=== PATIENT | female | born 1995 | race Caucasian/White ===

== ENCOUNTER → 2020-05-26 14:27 | Outpatient (BNVA) | payer MEDICAID, SELFPAY | PROVIDERS: PCP Internal Medicine; Referring Provider Internal Medicine; Visit Provider Student in an Organized Health Care Education/Training Program | DX: M25.50 Pain in unspecified joint (principal); M79.642 Pain in left hand; M79.641 Pain in right hand | CPT/HCPCS: 99202 ==

== ENCOUNTER 2020-05-28 10:28 | Outpatient (REF) | payer MEDICAID, SELFPAY ==
--- NOTE | 2020-05-28 10:54 | XR_ITS ---
EXAMINATION: BILATERAL HAND/WRIST. CLINICAL INFORMATION: Pain. COMPARISON: None TECHNIQUE: 4 views each hand. FINDINGS: RIGHT HAND: There is no visible acute fracture, dislocation or subluxation. The joint spaces are maintained. The soft tissues are normal. LEFT HAND: There is no visible fracture, dislocation or subluxation. The joint spaces are maintained. The soft tissues are normal. XR/XR hand wrist LT IMPRESSION: Unremarkable bilateral hand exam.
--- NOTE | 2020-05-28 10:54 | XR_ITS ---
EXAMINATION: BILATERAL HAND/WRIST. CLINICAL INFORMATION: Pain. COMPARISON: None TECHNIQUE: 4 views each hand. FINDINGS: RIGHT HAND: There is no visible acute fracture, dislocation or subluxation. The joint spaces are maintained. The soft tissues are normal. LEFT HAND: There is no visible fracture, dislocation or subluxation. The joint spaces are maintained. The soft tissues are normal. XR/XR hand wrist RT IMPRESSION: Unremarkable bilateral hand exam.
[2020-05-28 11:01] LABS: MANUAL DIFF FLAG NO
[2020-05-28 11:06] LABS: Basophils Absolute Auto 0.1 X10*3/uL (0.0-0.2); Basophils Percent Auto 0.6 % (0-2); Eosinophils Absolute Auto 0.2 X10*3/uL (0.0-0.4); Eosinophils Percent Auto 1.7 % (0-4); Hematocrit 41.5 % (37-47); Hemoglobin 14.4 g/dl (12.0-16.0); Imm Gran Abs Auto 0.03 X10*3/uL (0.00-0.03); Imm Gran Pct Auto 0.3 % (0.0-0.4); Lymphocytes Absolute Auto 3.6 X10*3/uL (1.2-4.9); Lymphocytes Percent Auto 32.4 % (20-40); Mean Corpuscular HGB Conc 34.7 g/dl (31.0-35.0); Mean Corpuscular Hemoglobin 29.1 pg (27.0-33.0); Mean Corpuscular Volume 83.8 fL (80-98); Mean Platelet Volume 8.8 fL (9.4-12.3); Monocytes Absolute Auto 0.7 X10*3/uL (0.1-1.2); Monocytes Percent Auto 6.5 % (2-11); Neutrophils Absolute Auto 6.5 X10*3/uL (2.0-8.3); Neutrophils Percent Auto 58.5 % (45-73); Platelet Count 479 X10*3/uL (160-400); Red Blood Count 4.95 X10*6/uL (4.20-5.50); Red Cell Distribution Width 12.1 % (11.0-16.0); White Blood Count 11.1 X10*3/uL (4.8-10.8)
[2020-05-28 11:41] LABS: Alanine Aminotransferase 49 U/L (0-31); Albumin Level 4.1 g/dL (3.5-5.0); Alkaline Phosphatase 79 U/L (39-117); Anion Gap 12 (12-20); Aspartate Amino Transferase 38 U/L (5-31); Bilirubin Total 0.4 mg/dL (0.0-1.0); Blood Urea Nitrogen 9 mg/dL (9-16); C Reactive Protein 1.23 mg/dL (< or = 0.50); Carbon Dioxide 27 mmol/L (22-29); Chloride 103 mmol/L (96-108); Estimated Glomerular Filt Rate > 60; Glucose Random 194 mg/dL (60-115); Rheumatoid Factor < 15.0 IU/mL (<15.0); Sodium 138 mmol/L (135-145); Total Protein 7.3 g/dL (6.5-8.0)
[2020-05-28 11:50] LABS: Erythrocyte Sedimentation Rate 39 MM/HR (0-20)
[2020-05-29 13:12] LABS: Antibody to SS-A Antigen <1.0 NEG AI (<1.0 NEG); Antibody to SS-B Antigen <1.0 NEG AI (<1.0 NEG)
[2020-05-30 14:52] LABS: Anti Nuclear Antibody Screen NEGATIVE (NEGATIVE)
[2020-06-01 00:17] LABS: Cyclic Citrullinated Peptide <16 UNITS
== END 2020-05-28 10:29 | disposition home or self-care (01) ==
LOC: HO.LAB 10:28
PROVIDERS: PCP Internal Medicine; Visit Provider Student in an Organized Health Care Education/Training Program
DX: M25.50 Pain in unspecified joint (principal)
CPT/HCPCS: 36415; 73110; 73130; 80053; 85025; 85652; 86038; 86039; 86140; 86200; 86235; 86431

== ENCOUNTER 2020-06-14 08:35 | Emergency (ER) | payer MEDICAID, SELFPAY ==
[2020-06-14 09:03] VITALS: PULSE 75; RESP 20; TEMP 37; O2SAT 100; BMI 37.2
--- NOTE | 2020-06-14 09:03 | ED.HA ---
HPI - Headache General Chief Complaint: Headache Stated Complaint: headache,sob Time Seen by Provider: 06/14/20 09:02 Source: patient Mode of arrival: ambulatory Limitations: no limitations History of Present Illness HPI Narrative: Headache started at 5am, frontal. Patient suffers from headaches frequently. In addition had right sided chest pain, no fever or cough. MD elicited complaint: headache Onset (ago): hour(s) Onset description: while at rest Location: frontal Severity: mild Associated symptoms: nausea Related Data Home Medications Medication Instructions Recorded Confirmed insulin glargine 100 unit/mL (3 10 unit SUBCUT QPM 05/26/20 mL) subcutaneous pen medroxyprogesterone 150 mg/mL 150 mg IM [id number] 05/26/20 intramuscular suspension metformin 850 mg tablet 850 mg PO DAILY 05/26/20 Previous Rx's Medication Instructions Recorded naproxen [Naprosyn] 500 mg PO BID #20 tab 06/14/20 Allergies Allergy/AdvReac Type Severity Reaction Status Date / Time No Known Allergies Allergy Verified 05/26/20 14:38 [No Known Allergies*] Review of Systems Constitutional: Constitutional: Reports no additional constitutional complaints Eyes: Eyes: Reports no additional eye complaints ENT: Denies dizziness Cardiovascular: Cardiovascular: Reports no additional cardiovascular complaints Respiratory: Respiratory: Reports as per HPI Gastrointestinal: Gastrointestinal: Reports no additional gastrointestinal complaints Genitourinary: Genitourinary: Reports no additional female genitourinary complaints Musculoskeletal: Musculoskeletal: Reports no additional musculoskeletal complaints Integumentary/Breasts: Skin/Breast: Denies rash Neurologic: Reports system reviewed and no additional complaints, except as documented, Denies dizziness and Denies Sensory deficit (Neuro) Psychiatric: Psychiatric: Denies anxiety [facility] Past Medical History Medical History Depression Diabetes Liver disease Obesity Polycystic disease, ovaries Surgical History No pertinent past surgical history Family History Family History Father Diabetes Alzheimer disease Arthritis Mother Diabetes Social History Social History Alcohol intake: never Smoking Status: Never smoker Smoked in Last 30 Days: No Use of substances other than those prescribed or required for medical reasons: No Advance Directives: Yes Advance Directives Information Provided: Yes Advance Directives on File: No Physical Exam Vital Signs: Vital Signs: Last Vital Signs Temp 98.6 F 06/14/20 09:03 Pulse 72 06/14/20 11:15 Resp 20 06/14/20 09:03 BP 142/77 H 06/14/20 11:15 Pulse Ox 100 06/14/20 09:03 Body Mass Index 37.2 Const: General: healthy appearing Nutritional Appearance: obese Orientation/consciousness: oriented to person and patient oriented x3 Limitations: no limitations HENMT: Head: Yes normal to inspection Ears: external ears normal General nose exam: Normal external nose present Mouth: Normal oral and palatal mucosa present and oropharynx normal Throat: Yes posterior oropharynx normal Eyes: General: appearance normal, both eyes and all related structures Neck: Other: supple Neck: Yes normal visual inspection Chest: Chest palpation & inspection: normal inspection of the chest Resp: Auscultation: clear to auscultation bilaterally Cardio: Jugular venous distension: no JVD Rate: regular rate Rhythm: regular rhythm Heart sounds: S1 normal heart sound present and S2 normal heart sound present GI: Inspection: Yes normal to inspection Palpation (GI): Soft to palpation, nontender and No hepatosplenomegaly present Auscultation: normal bowel sounds : General: Yes no CVA tenderness Back/Spine/Pelvis: Back: no CVA tenderness Skin: General skin exam: no rashes or lesions noted Neuro: General: oriented to person and patient oriented x3 Cranial nerves: Yes CN's II-XII intact bilaterally Motor exam (neuro): 5/5 motor strength present throughout Sensory Exam: No Sensory deficit (Neuro) Extrem: General: Yes normal to inspection Psych: Appearance: grossly normal Course Course Course Narrative: resting comfortably Reevaluation(s) Reevaluation #1: Chest xray is normal MDM - Headache MDM Narrative Medical decision making narrative: Although patient has DM, her chest pain sound non cardiac, she is young with normal EKG and troponin. Will dc home on NSAIDs for her headache Differential Diagnosis Differential diagnosis: Likely headache Lab Data Labs: Lab Results 06/14/20 Range/Units 09:21 Urine Test NEGATIVE (NEGATIVE) ECG Data Attestation: I personally reviewed and interpreted this ECG as follows: Interpretation: sinus rate 75, apcs, no st or twave changes Discharge Plan Discharge Clinical Impression: Atypical chest pain Headache Qualifiers: Headache type: other headache syndrome Qualified Code(s): G44.89 - Other headache syndrome Patient Disposition: Home, Self-Care Instructions: Chest Pain (ED), Acute Headache (ED) Prescriptions: New naproxen [Naprosyn] 500 mg tablet 500 mg PO BID Qty: 20 RF: 0 No Action metformin 850 mg tablet 850 mg PO DAILY RF: 0 Lantus Solostar U-100 Insulin 100 unit/mL (3 mL) insulin pen 10 unit subcut QPM RF: 0 medroxyprogesterone [Depo-Provera] 150 mg/mL suspension 150 mg IM [id number] RF: 0 Referrals: Debby King MD [Primary Care Provider] - 2 days
--- NOTE | 2020-06-14 09:06 | XR_ITS ---
EXAMINATION: XR CHEST CLINICAL INFORMATION: Chest pain COMPARISON: None TECHNIQUE: Frontal view of the chest was obtained. FINDINGS: No significant abnormality is noted involving the heart, lungs, mediastinum, bony thorax or soft tissues. XR/XR chest 1V IMPRESSION: Unremarkable examination.
--- NOTE | 2020-06-14 09:06 | ECG_ITS ---
Test Reason : CP Blood Pressure : / mmHG Vent. Rate : 074 BPM Atrial Rate : 074 BPM P-R Int : 132 ms QRS Dur : 104 ms QT Int : 370 ms P-R-T Axes : 019 053 012 degrees QTc Int : 410 ms Sinus rhythm with Premature supraventricular complexes Nonspecific ST abnormality When compared with ECG of [id number] Heart rate has decreased Premature atrial complexes are new T wave inversion no longer evident in Inferior leads T wave amplitude has increased in Lateral leads QT has shortened Referred By: Antonio Wall Electronically Signed By:PONCE LOPEZ MD
[2020-06-14] MEDS: Ketorolac Tromethamine 60 MG/2 ML VIAL IM (09:20)
--- NOTE | 2020-06-14 09:26 | PC.NURSE ---
Pt presents with a gradual onset of headache with associated exertional substernal chest pain. She is alert, rr even, speaks in full sentences, skin is pwdi, and she is in nad. Dr Wall in to see pt. Orders provided. Pt ambulated to without diffulty to produce urine spec. She was medicated per emar.
[2020-06-14 09:49] LABS: UPreg QC Valid YES; Urine Pregnancy NEGATIVE (NEGATIVE)
[2020-06-14 11:15] VITALS: BP 142/77; PULSE 72
--- NOTE | 2020-06-14 11:27 | PC.NURSE ---
Pt requesting a covid swab test per her employers request to return to work. Dr Wall made aware and placed order. Pt swabbed as ordered.
== END 2020-06-14 12:08 | disposition home or self-care (01) ==
PROVIDERS: Emergency Provider Emergency Medicine; PCP Internal Medicine
DX: G44.89 Other headache syndrome (principal); R05 Cough; R07.89 Other chest pain; Z20.828 Contact with and (suspected) exposure to other viral communicable diseases; Z79.899 Other long term (current) drug therapy
CPT/HCPCS: 71045; 81025; 93005; 96372; 99284; J1885; U0003

== ENCOUNTER → 2020-06-29 11:25 | Outpatient (BNVA) | payer MEDICAID, SELFPAY | PROVIDERS: PCP Internal Medicine; Referring Provider Internal Medicine; Visit Provider Student in an Organized Health Care Education/Training Program | DX: Z76.89 Persons encountering health services in other specified circumstances (principal) ==

== ENCOUNTER → 2020-07-14 09:53 | Outpatient (BNVA) | payer MEDICAID, SELFPAY | PROVIDERS: PCP Internal Medicine; Referring Provider Internal Medicine; Visit Provider Internal Medicine | DX: Z76.89 Persons encountering health services in other specified circumstances (principal) ==

== ENCOUNTER → 2020-07-20 08:44 | Outpatient (BNVA) | payer MEDICAID, SELFPAY | PROVIDERS: PCP Internal Medicine; Visit Provider Physician Assistant | DX: Z76.89 Persons encountering health services in other specified circumstances (principal) ==

== ENCOUNTER 2021-01-26 23:49 | Emergency (ER) | payer MEDICAID, SELFPAY ==
[2021-01-27 00:02] VITALS: BP 142/84; PULSE 86; RESP 20; TEMP 35.9; O2SAT 96; BMI 39.6
--- NOTE | 2021-01-27 00:24 | ECG_ITS ---
Test Reason : DIZZINESS Blood Pressure : / mmHG Vent. Rate : 074 BPM Atrial Rate : 074 BPM P-R Int : 138 ms QRS Dur : 098 ms QT Int : 360 ms P-R-T Axes : 061 066 023 degrees QTc Int : 399 ms Sinus rhythm with marked sinus arrhythmia Early repolarization Otherwise normal ECG When compared with ECG of 14-JUN-2020 09:25, Premature supraventricular complexes are no longer Present Referred By: Pratima Lo Electronically Signed By:BEVERLY VÁZQUEZ
--- NOTE | 2021-01-27 00:55 | ED.HA ---
HPI - Headache General Chief Complaint: Headache Stated Complaint: light headed weak, nausea aprox 4 days Time Seen by Provider: 01/27/21 00:24 Source: patient Mode of arrival: ambulatory History of Present Illness HPI Narrative: 25-year-old female with a past medical history of depression, hirsutism, liver disease, obesity, PCOS, transaminitis, diabetes, vitamin-D deficiency, presenting to the ED complaining of headache, nausea, and lightheadedness x3 days. Reports headache not maximal at onset. Reports associated photophobia. Denies fever, chills, visual change/loss, vomiting, diarrhea, CP/ SOB, dysuria/hematuria. LMP years ago, patient reports does not get menstrual cycle secondary to PCOS MD elicited complaint: headache Related Data Home Medications Medication Instructions Recorded Confirmed insulin glargine 100 unit/mL (3 10 unit SUBCUT QPM 05/26/20 07/14/20 mL) subcutaneous pen medroxyprogesterone 150 mg/mL 150 mg IM [id number] 05/26/20 07/14/20 intramuscular suspension ibuprofen 800 mg tablet 800 mg PO Q8H PRN 07/14/20 07/14/20 Previous Rx's Medication Instructions Recorded cefuroxime axetil 250 mg PO BID 7 Days #14 tab 01/27/21 Allergies Allergy/AdvReac Type Severity Reaction Status Date / Time No Known Allergies Allergy Verified 07/14/20 11:40 [No Known Allergies*] Review of Systems Review of Systems: Constitutional: No Fever, No Chills,No Fatigue, No Malaise ENT/Mouth: No Hearing loss, No Ear Pain, No sore throat, No Rhinorrhea Eyes: No Eye Pain, No Vision Changes Cardiovascular: No Chest Pain, No SOB Respiratory: No Cough, No Dyspnea Gastrointestinal: + Nausea, No Vomiting, No Diarrhea, No Abdominal pain Genitourinary: No Dysuria, No Urinary Frequency, No Hematuria,No Flank Pain Musculoskeletal: No joint pain, No Myalgias, No Joint Swelling Skin: No Skin Lesions, No rash Neuro: No Weakness, No Numbness, No Paresthesias, No Loss of Consciousness, No Dizziness, + lightheadedness, +Headache Yes all other systems are reviewed and are negative Neurologic: Denies Sensory deficit (Neuro) PMFSH Past Medical History Attestation statement: The following information was validated with the patient. Medical History (Updated 01/27/21 @ 02:28 by KAZ Campbell) Amenorrhea Depression Elevated liver enzymes Hirsutism Liver disease Obesity Polycystic disease, ovaries Transaminitis Type 2 diabetes mellitus Vitamin D deficiency Surgical History No pertinent past surgical history Family History Family History Father Diabetes Arthritis Mother Diabetes Alzheimer disease Social History Social History (Updated 07/20/20 @ 09:05 by Jessica Henry PA-C) Household Members: Family Alcohol intake: never Advance Directives: No Advance Directives Information Provided: No Patient : No Current occupational status: unemployed Physical Exam Vital Signs: Vital Signs: Last Vital Signs Temp 96.6 F L 01/27/21 00:02 Pulse 86 01/27/21 00:02 Resp 20 01/27/21 00:02 BP 142/84 H 01/27/21 00:02 Pulse Ox 96 01/27/21 00:02 Body Mass Index 39.6 Const: General: cooperative, healthy appearing, no acute distress, well developed, alert and awake Orientation/consciousness: patient oriented x3 Limitations: no limitations HENMT: Head: Yes normal to inspection Ears: hearing grossly normal bilaterally General nose exam: Normal external nose present Face and sinus: Yes normal facial exam Eyes: General: appearance normal, both eyes and all related structures Pupils: Equal, round and reactive pupils present EOM: EOMs intact bilaterally Neck: Neck: Yes normal visual inspection, Yes full ROM, Yes no lymphadenopathy and Yes no meningeal signs Resp: Effort & Inspection: normal respiratory effort Auscultation: no crackles and no wheezes Cardio: Rate: regular rate Heart sounds: S1 normal heart sound present and S2 normal heart sound present GI: Inspection: Yes normal to inspection Palpation (GI): Soft to palpation, nontender, no guarding and not rigid Skin: Rashes: no rashes Wounds: no wounds Neuro: General: patient oriented x3, tone normal, moves all extremities, no meningeal signs, no focal motor deficits and CN's II-XI intact bilaterally Cranial nerves: Yes Equal, round and reactive pupils present Gait exam (Neuro): Normal gait present Motor exam (neuro): 5/5 motor strength present throughout, Pronator motor function not present and no tremor noted Sensory Exam: No Sensory deficit (Neuro) Coordination: [id number] test normal Romberg Test: Negative Extrem: General: Yes normal to inspection Course Course Course Narrative: - no leukocytosis, AST/ ALT at patient's baseline, troponin negative - UA infected, urine negative >> patient given 1st dose of Ceftin in the ED -0230-- on re-evaluation patient reports symptomatic improvement in the ED, worrisome signs and symptoms and strict return precautions discussed, she verbalized understanding feel safe for discharge home MDM - Headache MDM Narrative Medical decision making narrative: 25-year-old female with a past medical history of depression, hirsutism, liver disease, obesity, PCOS, transaminitis, diabetes, vitamin-D deficiency, presenting to the ED complaining of headache, nausea, and lightheadedness x3 days. on exam VSS, NAD, well appearing, nontoxic. No focal neuro deficits. Concern for migraine headache vs metabolic abnormalities. Rule out . Symptoms atypical for ACS. Low concern for meningitis/encephalitis or CVT or ICH/SAH plan: EKG, labs, IVF, symptomatic treatment, reassess Medical Records Attestation: I reviewed the patient's medical records. Lab Data Attestation: I reviewed the patient's lab results. Result diagrams: 01/27/21 00:56 01/27/21 00:56 Labs: Lab Results 01/27/21 01/27/21 01/27/21 Range/Units 00:56 00:56 00:56 WBC 10.4 (4.8-10.8) X10*3/uL RBC 4.78 (4.20-5.50) X10*6/uL Hgb 13.9 (12.0-16.0) g/dl Hct 40.1 (37-47) % MCV 83.9 (80-98) fL MCH 29.1 (27.0-33.0) pg MCHC 34.7 (31.0-35.0) g/dl RDW 11.9 (11.0-16.0) % Plt Count 441 H (160-400) X10*3/uL MPV 8.9 L (9.4-12.3) fL Immature Gran % (Auto) 0.3 (0.0-0.4) % Neut % (Auto) 46.7 (45-73) % Lymph % (Auto) 38.8 (20-40) % [place] % (Auto) 9.7 (2-11) % Eos % (Auto) 3.8 (0-4) % Baso % (Auto) 0.7 (0-2) % Lymph # (Auto) 4.0 (1.2-4.9) X10*3/uL [place] # (Auto) 1.0 (0.1-1.2) X10*3/uL Eos # (Auto) 0.4 (0.0-0.4) X10*3/uL Baso # (Auto) 0.1 (0.0-0.2) X10*3/uL Abs Immat Gran (auto) 0.03 (0.00-0.03) X10*3/uL Absolute Neuts (auto) 4.8 (2.0-8.3) X10*3/uL Absolute Nucleated RBC 0.000 (0.0-0.012) X10*3/uL Nucleated RBC % (auto) 0.0 (0.0-0.2) /100WBC Sodium 138 (135-145) mmol/L Potassium 4.1 (3.3-5.1) mmol/L Chloride 104 (96-108) mmol/L Carbon Dioxide 26 (22-29) mmol/L Anion Gap 12 (12-20) BUN 12 (9-16) mg/dL Creatinine 0.67 (0.5-1.4) mg/dL Estim Creat Clear Calc 159.5 Estimated GFR > 60 Random Glucose 223 H (60-115) mg/dL Calcium 9.1 (8.4-10.2) mg/dL Magnesium 1.7 (1.6-2.6) mg/dL Total Bilirubin 0.3 (0.0-1.0) mg/dL Direct Bilirubin < 0.2 (0.0-0.5) mg/dL AST 42 H (5-31) U/L ALT 64 H (0-31) U/L Alkaline Phosphatase 73 (39-117) U/L Total Protein 7.2 (6.5-8.0) g/dL Albumin 3.8 (3.5-5.0) g/dL Urine Color YELLOW Urine Appearance HAZY Urine pH 6.0 (5.0-8.0) Ur Specific [place] 1.025 (1.005-1.025) Urine Protein NEG (NEG-TRACE) MG/DL Urine Glucose (UA) 500 H (NEG) MG/DL Urine Ketones 5 (NEG) MG/DL Urine Blood TRACE (NEG) Urine Nitrite POS H (NEG) Ur Leukocyte Esterase NEG (NEG) Urine RBC 0 (0) /HPF Urine WBC 5-9 H (0-4) /HPF Ur Squamous Epith Cells 3+ /LPF Talc Crystals 2+ /LPF Urine Bacteria 4+ /LPF Urine Test (NEGATIVE) 01/27/21 Range/Units 00:56 WBC (4.8-10.8) X10*3/uL RBC (4.20-5.50) X10*6/uL Hgb (12.0-16.0) g/dl Hct (37-47) % MCV (80-98) fL MCH (27.0-33.0) pg MCHC (31.0-35.0) g/dl RDW (11.0-16.0) % Plt Count (160-400) X10*3/uL MPV (9.4-12.3) fL Immature Gran % (Auto) (0.0-0.4) % Neut % (Auto) (45-73) % Lymph % (Auto) (20-40) % [place] % (Auto) (2-11) % Eos % (Auto) (0-4) % Baso % (Auto) (0-2) % Lymph # (Auto) (1.2-4.9) X10*3/uL [place] # (Auto) (0.1-1.2) X10*3/uL Eos # (Auto) (0.0-0.4) X10*3/uL Baso # (Auto) (0.0-0.2) X10*3/uL Abs Immat Gran (auto) (0.00-0.03) X10*3/uL Absolute Neuts (auto) (2.0-8.3) X10*3/uL Absolute Nucleated RBC (0.0-0.012) X10*3/uL Nucleated RBC % (auto) (0.0-0.2) /100WBC Sodium (135-145) mmol/L Potassium (3.3-5.1) mmol/L Chloride (96-108) mmol/L Carbon Dioxide (22-29) mmol/L Anion Gap (12-20) BUN (9-16) mg/dL Creatinine (0.5-1.4) mg/dL Estim Creat Clear Calc Estimated GFR Random Glucose (60-115) mg/dL Calcium (8.4-10.2) mg/dL Magnesium (1.6-2.6) mg/dL Total Bilirubin (0.0-1.0) mg/dL Direct Bilirubin (0.0-0.5) mg/dL AST (5-31) U/L ALT (0-31) U/L Alkaline Phosphatase (39-117) U/L Total Protein (6.5-8.0) g/dL Albumin (3.5-5.0) g/dL Urine Color Urine Appearance Urine pH (5.0-8.0) Ur Specific [place] (1.005-1.025) Urine Protein (NEG-TRACE) MG/DL Urine Glucose (UA) (NEG) MG/DL Urine Ketones (NEG) MG/DL Urine Blood (NEG) Urine Nitrite (NEG) Ur Leukocyte Esterase (NEG) Urine RBC (0) /HPF Urine WBC (0-4) /HPF Ur Squamous Epith Cells /LPF Talc Crystals /LPF Urine Bacteria /LPF Urine Test NEGATIVE (NEGATIVE) Discharge Plan Discharge Clinical Impression: Headache, UTI (urinary tract infection) Patient Disposition: Home, Self-Care Instructions: Urinary Tract Infection in Women (ED), Acute Headache (ED) Additional Instructions: you have a urinary tract infection, Ceftin is antibiotic, take as prescribed It is important that her staying hydrated at home, drink plenty of fluids, electrolytes, Gatorade Take Tylenol and Motrin at home for headache You need to follow-up with her doctor If her symptoms persist or worsen, become unbearable coming adult fever, abdominal persist nausea, vomiting, visual changes, unbearable headache please return to the ED Prescriptions: New cefuroxime axetil 250 mg tablet 250 mg PO BID 7 Days Qty: 14 RF: 0 No Action ibuprofen 800 mg tablet 800 mg PO Q8H PRNRF: 0 Lantus Solostar U-100 Insulin 100 unit/mL (3 mL) insulin pen 10 unit subcut QPM RF: 0 medroxyprogesterone [Depo-Provera] 150 mg/mL suspension 150 mg IM [id number] RF: 0 Referrals: Debby King MD [Primary Care Provider] - 2 days
[2021-01-27 01:06] LABS: MANUAL DIFF FLAG NO
[2021-01-27 01:07] LABS: Basophils Absolute Auto 0.1 X10*3/uL (0.0-0.2); Basophils Percent Auto 0.7 % (0-2); Eosinophils Absolute Auto 0.4 X10*3/uL (0.0-0.4); Eosinophils Percent Auto 3.8 % (0-4); Hematocrit 40.1 % (37-47); Hemoglobin 13.9 g/dl (12.0-16.0); Imm Gran Abs Auto 0.03 X10*3/uL (0.00-0.03); Imm Gran Pct Auto 0.3 % (0.0-0.4); Lymphocytes Percent Auto 38.8 % (20-40); Mean Corpuscular HGB Conc 34.7 g/dl (31.0-35.0); Mean Corpuscular Hemoglobin 29.1 pg (27.0-33.0); Mean Corpuscular Volume 83.9 fL (80-98); Mean Platelet Volume 8.9 fL (9.4-12.3); Monocytes Percent Auto 9.7 % (2-11); Neutrophils Absolute Auto 4.8 X10*3/uL (2.0-8.3); Neutrophils Percent Auto 46.7 % (45-73); Platelet Count 441 X10*3/uL (160-400); Red Blood Count 4.78 X10*6/uL (4.20-5.50); Red Cell Distribution Width 11.9 % (11.0-16.0); White Blood Count 10.4 X10*3/uL (4.8-10.8)
[2021-01-27] MEDS: diphenhydrAMINE HCL 50 MG/ML VIAL 25 MG IVPUSH (01:12)
[2021-01-27] MEDS: Ketorolac Tromethamine 15 MG/ML VIAL IVPUSH (01:12)
[2021-01-27] MEDS: Metoclopramide HCl 10 MG/2 ML VIAL IVPUSH (01:12)
[2021-01-27] MEDS: 0.9 % Sodium Chloride 1,000 ML 999 ML IVCONT (01:12)
[2021-01-27 01:18] LABS: Glucose Urine UA 500 MG/DL (NEG); Leukocyte Esterase Urine NEG (NEG); Nitrite Urine POS (NEG); Specific Gravity - Urine 1.025 (1.005-1.025); UACC Culture Trigger YES; Urine Blood TRACE (NEG); Urine Ketones 5 MG/DL (NEG); Urine Protein NEG (NEG-TRACE)
[2021-01-27 01:19] LABS: Appearance Urine HAZY; Color Urine YELLOW
[2021-01-27 01:25] LABS: Bacteria Urine 4+ /LPF; RBC Urine 0 /HPF (0); Squamous Epithelial Cell Urine 3+ /LPF
[2021-01-27 01:26] LABS: Urine Talc Crystals 2+ /LPF
[2021-01-27 01:32] LABS: Alanine Aminotransferase 64 U/L (0-31); Albumin Level 3.8 g/dL (3.5-5.0); Alkaline Phosphatase 73 U/L (39-117); Anion Gap 12 (12-20); Aspartate Amino Transferase 42 U/L (5-31); Bilirubin Direct < 0.2 mg/dL (0.0-0.5); Bilirubin Total 0.3 mg/dL (0.0-1.0); Blood Urea Nitrogen 12 mg/dL (9-16); Calcium 9.1 mg/dL (8.4-10.2); Carbon Dioxide 26 mmol/L (22-29); Chloride 104 mmol/L (96-108); Creatinine Clr Calc Pharmacy 159.5; Estimated Glomerular Filt Rate > 60; Glucose Random 223 mg/dL (60-115); Magnesium 1.7 mg/dL (1.6-2.6); Potassium 4.1 mmol/L (3.3-5.1); Sodium 138 mmol/L (135-145); Total Protein 7.2 g/dL (6.5-8.0)
[2021-01-27 01:40] LABS: UPreg QC Valid YES; Urine Pregnancy NEGATIVE (NEGATIVE)
[2021-01-27 02:00] VITALS: PULSE 85; RESP 18
[2021-01-27 02:27] LABS: Troponin-I High Sensitivity < 3.5 ng/L (<3.5-17.0)
[2021-01-27 02:29] VITALS: BP 128/64; BP 131/75; BP 142/54; PULSE 102; PULSE 85; PULSE 87
[2021-01-27 02:44] LABS: HCG Quantitative < 2 mIU/mL
== END 2021-01-27 02:43 | disposition home or self-care (01) ==
PROVIDERS: Physician Assistant; Emergency Provider Internal Medicine; PCP Internal Medicine
DX: R51.9 Headache, unspecified (principal); N39.0 Urinary tract infection, site not specified; E11.9 Type 2 diabetes mellitus without complications; Z79.4 Long term (current) use of insulin
CPT/HCPCS: 36415; 80048; 80076; 81001; 81003; 81025; 83735; 84484; 84702; 85025; 87086; 87088; 87186; 93005; 96361; 96374; 96375; 99285; J1200; J1885; J2765

== ENCOUNTER 2021-02-01 21:07 | Emergency (ER) | payer MEDICAID, SELFPAY ==
[2021-02-01 22:12] VITALS: BP 155/100; PULSE 99; RESP 16; TEMP 36.9; O2SAT 98; BMI 38.6
--- NOTE | 2021-02-02 00:25 | ED_ITS ---
HPI - Skin/Abscess/Foreign Bdy General Chief complaint: Skin/Abscess/Foreign Body Stated complaint: foot infection Source: patient Mode of arrival: ambulatory Limitations: no limitations History of Present Illness HPI narrative: Patient presents to ED for painful rash with blisters on right 5th toe states since yesterday. Patient denies any trauma to the area. Patient denies rash being itchy. Patient states an area of redness with blisters on in her 5th toe and outside of 5th toe that is burning and painful. Patient denies rash elsewhere on the body Related Data Home Medications Medication Instructions Recorded Confirmed insulin glargine 100 unit/mL (3 10 unit SUBCUT QPM 05/26/20 07/14/20 mL) subcutaneous pen medroxyprogesterone 150 mg/mL 150 mg IM [id number] 05/26/20 07/14/20 intramuscular suspension ibuprofen 800 mg tablet 800 mg PO Q8H PRN 07/14/20 07/14/20 Previous Rx's Medication Instructions Recorded cefuroxime axetil 250 mg PO BID 7 Days #14 tab 01/27/21 naproxen 500 mg PO BID PRN #20 tab 02/02/21 valacyclovir 1,000 mg PO Q12H 7 Days #14 tab 02/02/21 Allergies Allergy/AdvReac Type Severity Reaction Status Date / Time No Known Allergies Allergy Verified 02/01/21 22:11 [No Known Allergies*] Review of Systems Constitutional: Constitutional: Reports as per HPI and Reports no additional constitutional complaints Eyes: Eyes: Reports as per HPI and Reports no additional eye complaints ENT: Reports system reviewed and no additional complaints, except as documented and Reports as per HPI Cardiovascular: Cardiovascular: Reports as per HPI and Reports no additional cardiovascular complaints Respiratory: Respiratory: Reports as per HPI and Reports no additional respiratory complaints Gastrointestinal: Gastrointestinal: Reports as per HPI and Reports no additional gastrointestinal complaints Genitourinary: Genitourinary: Reports no additional female genitourinary complaints and Reports as per HPI Musculoskeletal: Musculoskeletal: Reports as per HPI Comments: right toe rash Neurologic: Reports system reviewed and no additional complaints, except as documented and Reports as per HPI Psychiatric: Psychiatric: Reports no additional psychiatric complaints and Reports as per HPI [facility] Past Medical History Medical History (Updated 02/02/21 @ 00:39 by KAZ Hunt) Amenorrhea Depression Elevated liver enzymes Hirsutism Liver disease Obesity Polycystic disease, ovaries Transaminitis Type 2 diabetes mellitus Vitamin D deficiency Surgical History No pertinent past surgical history Family History Family History Father Diabetes Arthritis Mother Diabetes Alzheimer disease Social History Social History (Updated 07/20/20 @ 09:05 by Jessica Henry PA-C) Household Members: Family Alcohol intake: never Advance Directives: No Current occupational status: unemployed Physical Exam Vital Signs: Vital Signs: Last Vital Signs Temp 98.5 F 02/01/21 22:12 Pulse 99 02/01/21 22:12 Resp 16 02/01/21 22:12 BP 155/100 H 02/01/21 22:12 Pulse Ox 98 02/01/21 22:12 Body Mass Index 38.6 Const: General: cooperative, healthy appearing, comfortable, no acute distress, well developed, alert and awake Orientation/consciousness: patient oriented x3 HENMT: Head: Yes normal to inspection, Yes No palpable skull fracture present, Yes normocephalic and Yes atraumatic Eyes: General: appearance normal, both eyes and all related structures Neck: Neck: Yes normal visual inspection, Yes full ROM, Yes no lymphadenopathy, Yes no meningeal signs, Yes trachea midline, Yes supple and No tender Chest: Chest palpation & inspection: normal inspection of the chest and normal palpation of entire chest wall Resp: Effort & Inspection: normal respiratory effort and able to speak in complete sentences Auscultation: clear to auscultation bilaterally Cardio: Jugular venous distension: no JVD Heart sounds: S1 normal heart sound present and S2 normal heart sound present GI: Inspection: Yes normal to inspection and No abdominal wall ecchymosis Palpation (GI): Soft to palpation, not firm, nontender, no guarding and not rigid : General: No CVA tenderness and Yes no CVA tenderness Back/Spine/Pelvis: Back: no CVA tenderness, No CVA tenderness and No back te nderness Skin: Other: Right pinky toe her erythema with blisters General skin exam: no rashes or lesions noted Neuro: General: patient oriented x3, gait normal, no meningeal signs and CN's II-XI intact bilaterally Cranial nerves: Yes CN's II-XII intact bilaterally Extrem: Ankle/foot/toe images: 1. Area of erythema with blisters/vesicles. Negative for any pus drainage or scaly rash. 2. Erythema with blisters/vesicles. Negative for any pus discharge or scaly rash. Psych: Appearance: grossly normal, well kempt and not disheveled Course Course Course Narrative: Most likely rash indicates herpes on the skin/herpes [place]ow. Reevaluation(s) Reevaluation #1: Dr. Shi evaluate foot and agreed patient may be having herpetic elio on the foot and recommend viral culture swab with valcylovir Time: 12:34 MDM - Skin/Abscess/Foreign Bdy MDM Narrative Medical decision making narrative: Herpes on toe Discharge Plan Discharge Clinical Impression: Herpes dermatitis Patient Disposition: Home, Self-Care Instructions: Acute Rash (ED) Additional Instructions: Physical presentation of rash may indicate herpetic rash on toes. Herpes viral cultures was sent. He will be discharged with valacyclovir. Return to the ER immediately if rash worsens, pus discharge, foul odor, red streaks, fever, chills, or any other concerning symptoms. Please follow up with PCP. Prescriptions: New valacyclovir 1 gram tablet 1,000 mg PO Q12H 7 Days Qty: 14 RF: 0 naproxen 500 mg tablet 500 mg PO BID PRN (Reason: pain) Qty: 20 RF: 0 No Action cefuroxime axetil 250 mg tablet 250 mg PO BID 7 Days Qty: 14 RF: 0 ibuprofen 800 mg tablet 800 mg PO Q8H PRNRF: 0 Lantus Solostar U-100 Insulin 100 unit/mL (3 mL) insulin pen 10 unit subcut QPM RF: 0 medroxyprogesterone [Depo-Provera] 150 mg/mL suspension 150 mg IM [id number] RF: 0 Referrals: Debby King MD [Primary Care Provider] - 2 days (Herpetic lesion on toes treated with valacyclovir. HSV culture pending.) Stand Alone Forms: Work/School Release Interventions: ED Discharge Assessment Last Done: 02/02/21 00:46 Discharge Date/Time: 02/02/21 00:50 Print Language: Italian
== END 2021-02-02 00:50 | disposition home or self-care (01) ==
PROVIDERS: Physician Assistant; Emergency Provider Emergency Medicine; PCP Internal Medicine
DX: B00.89 Other herpesviral infection (principal); E11.9 Type 2 diabetes mellitus without complications
CPT/HCPCS: 87255; 99283; 99284

== ENCOUNTER 2021-04-12 00:21 | Emergency (ER) | payer MEDICAID, SELFPAY ==
--- NOTE | ~2021-04-12 | CT_ITS ---
EXAMINATION: CT HEAD WITHOUT CONTRAST CLINICAL INFORMATION: Increasing headaches and dizziness COMPARISON: 12/19/2008 TECHNIQUE: Contiguous axial imaging was performed from the skull base to vertex without intravenous administration of contrast. This CT examination was performed using dose optimization techniques as appropriate, variously including the following: *Automated exposure control *Adjustment of mA and/or kV according to patient size (this includes techniques or standardized protocols for targeted exams where dose is matched to indication/reason for exam; i.e. extremities or head) *Use of iterative reconstruction technique DLP: 809 mGy-cm FINDINGS: There is no evidence of acute intracranial hemorrhage or territorial infarction. No abnormal mass effect or midline shift is seen. Dillon to white matter differentiation is well preserved. No extra-axial fluid collections are identified. The ventricles are normal in size. Chronic appearing lacunar infarct in the right basal ganglia. The osseous structures and soft tissues are normal. The mastoid air cells and visualized portions of the paranasal sinuses are well aerated. CT/CT head/brain wo con IMPRESSION: No acute intracranial pathology.
[2021-04-12 00:25] VITALS: BP 170/108; PULSE 103; RESP 18; TEMP 37.1; O2SAT 99; BMI 38.2
--- NOTE | 2021-04-12 00:53 | ED.HA ---
HPI - Headache General Chief Complaint: Headache <Antonio Wall MD - Last Filed: 04/12/21 01:50> Stated Complaint: Migraines <Antonio Wall MD - Last Filed: 04/12/21 01:50> Time Seen by Provider: 04/12/21 00:41 <Antonio Wall MD - Last Filed: 04/12/21 01:50> Source: patient <Antonio Wall MD - Last Filed: 04/12/21 01:50> Mode of arrival: ambulatory <Antonio Wall MD - Last Filed: 04/12/21 01:50> Limitations: no limitations <Antonio Wall MD - Last Filed: 04/12/21 01:50> History of Present Illness HPI Narrative: patient states she constantly suffers from headache but never this bad. The headaches have been getting worse over 3-4 weeks. last time the patient had these symptoms she had a UTI. No fever, but having headache, nausea, weakness, dizziness <Antonio Wall MD - Last Filed: 04/12/21 01:50> MD elicited complaint: headache <Antonio Wall MD - Last Filed: 04/12/21 01:50> Onset (ago): week(s) <Antonio Wall MD - Last Filed: 04/12/21 01:50> Onset description: suddenly <Antonio Wall MD - Last Filed: 04/12/21 01:50> Location: frontal <Antonio Wall MD - Last Filed: 04/12/21 01:50> Severity: moderate <Antonio Wall MD - Last Filed: 04/12/21 01:50> Quality & Timing: throbbing and other (lightheaded) <Antonio Wall MD - Last Filed: 04/12/21 01:50> Exacerbating factors: none <Antonio Wall MD - Last Filed: 04/12/21 01:50> Relieving factors: nothing <Antonio Wall MD - Last Filed: 04/12/21 01:50> Associated symptoms: nausea, numbness and weakness <Antonio Wall MD - Last Filed: 04/12/21 01:50> Related Data Home Medications: Home Medications Medication Instructions Recorded Confirmed insulin glargine 100 unit/mL (3 10 unit SUBCUT QPM 05/26/20 07/14/20 mL) subcutaneous pen (Lantus Solostar U-100 Insulin) medroxyprogesterone 150 mg/mL 150 mg IM [id number] 05/26/20 07/14/20 intramuscular suspension (Depo-Provera) ibuprofen 800 mg tablet 800 mg PO Q8H PRN 07/14/20 07/14/20 Previous Rx's Medication Instructions Recorded cefuroxime axetil 250 mg tablet 250 mg PO BID 7 Days #14 tab 01/27/21 naproxen 500 mg tablet 500 mg PO BID PRN #20 tab 02/02/21 valacyclovir 1 gram tablet 1,000 mg PO Q12H 7 Days #14 tab 02/02/21 [id number] 1 cap PO Q6H PRN #20 cap 04/12/21 50 mg-300 mg-40 mg capsule (Fioricet) <Antonio Wall MD - Last Filed: 04/12/21 01:50> Allergies/Adverse Reactions: Allergies Allergy/AdvReac Type Severity Reaction Status Date / Time No Known Allergies Allergy Verified 02/01/21 22:11 [No Known Allergies*] <Antonio Wall MD - Last Filed: 04/12/21 01:50> Review of Systems Constitutional: Constitutional: Reports no additional constitutional complaints <Antonio Wall MD - Last Filed: 04/12/21 01:50> Eyes: Eyes: Reports no additional eye complaints <Antonio Wall MD - Last Filed: 04/12/21 01:50> ENT: Denies dizziness <Antonio Wall MD - Last Filed: 04/12/21 01:50> Cardiovascular: Cardiovascular: Reports no additional cardiovascular complaints <Antonio Wall MD - Last Filed: 04/12/21 01:50> Respiratory: Respiratory: Reports as per HPI <Antonio Wall MD - Last Filed: 04/12/21 01:50> Gastrointestinal: Gastrointestinal: Reports no additional gastrointestinal complaints <Antonio Wall MD - Last Filed: 04/12/21 01:50> Genitourinary: Genitourinary: Reports no additional female genitourinary complaints <Antonio Wall MD - Last Filed: 04/12/21 01:50> Musculoskeletal: Musculoskeletal: Reports no additional musculoskeletal complaints <Antonio Wall MD - Last Filed: 04/12/21 01:50> Integumentary/Breasts: Skin/Breast: Denies rash <Antonio Wall MD - Last Filed: 04/12/21 01:50> Neurologic: Reports system reviewed and no additional complaints, except as documented, Denies dizziness and Denies Sensory deficit (Neuro) <Antonio Wall MD - Last Filed: 04/12/21 01:50> Psychiatric: Psychiatric: Denies anxiety <Antonio Wall MD - Last Filed: 04/12/21 01:50> PMFSH Past Medical History Medical History: Medical History (Updated 04/12/21 @ 03:39 by Federico John MD) Amenorrhea Depression Elevated liver enzymes Hirsutism Liver disease Obesity Polycystic disease, ovaries Transaminitis Type 2 diabetes mellitus Vitamin D deficiency <Antonio Wall MD - Last Filed: 04/12/21 01:50> Surgical History: Surgical History No pertinent past surgical history <Antonio Wall MD - Last Filed: 04/12/21 01:50> Family History Family History: Family History Father Diabetes Arthritis Mother Diabetes Alzheimer disease <Antonio Wall MD - Last Filed: 04/12/21 01:50> Social History Social History: Social History (Updated 07/20/20 @ 09:05 by Jessica Henry PA-C) Household Members: Family Alcohol intake: never Advance Directives: No Advance Directives Information Provided: Yes Patient : No Current occupational status: unemployed <Antonio Wall MD - Last Filed: 04/12/21 01:50> Physical Exam Vital Signs: Vital Signs: Last Vital Signs Temp 98.0 F 04/12/21 01:38 Pulse 89 04/12/21 03:50 Resp 16 04/12/21 03:50 BP 135/63 04/12/21 03:50 Pulse Ox 98 04/12/21 03:50 Body Mass Index 38.2 <Antonio Wall MD - Last Filed: 04/12/21 01:50> Vital Signs: Last Vital Signs Temp 98.0 F 04/12/21 01:38 Pulse 89 04/12/21 03:50 Resp 16 04/12/21 03:50 BP 135/63 04/12/21 03:50 Pulse Ox 98 04/12/21 03:50 Body Mass Index 38.2 <Federico John MD - Last Filed: 04/12/21 05:19> Const: Nutritional Appearance: obese <Antonio Wall MD - Last Filed: 04/12/21 01:50> Orientation/consciousness: oriented to person and patient oriented x3 <Antonio Wall MD - Last Filed: 04/12/21 01:50> Limitations: no limitations <Antonio Wall MD - Last Filed: 04/12/21 01:50> HENMT: Head: Yes normal to inspection <Antonio Wall MD - Last Filed: 04/12/21 01:50> Ears: external ears normal <Antonio Wall MD - Last Filed: 04/12/21 01:50> General nose exam: Normal external nose present <Antonio Wall MD - Last Filed: 04/12/21 01:50> Mouth: Normal oral and palatal mucosa present and oropharynx normal <Antonio Wall MD - Last Filed: 04/12/21 01:50> Throat: Yes posterior oropharynx normal <Antonio Wall MD - Last Filed: 04/12/21 01:50> Eyes: Other: optic disks normal <Antonio Wall MD - Last Filed: 04/12/21 01:50> General: appearance normal, both eyes and all related structures <Antonio Wall MD - Last Filed: 04/12/21 01:50> Neck: Other: supple <Antonio Wall MD - Last Filed: 04/12/21 01:50> Neck: Yes normal visual inspection <Antonio Wall MD - Last Filed: 04/12/21 01:50> Chest: Chest palpation & inspection: normal inspection of the chest <Antonio Wall MD - Last Filed: 04/12/21 01:50> Resp: Auscultation: clear to auscultation bilaterally <Antonio Wall MD - Last Filed: 04/12/21 01:50> Cardio: Jugular venous distension: no JVD <Antonio Wall MD - Last Filed: 04/12/21 01:50> Rate: regular rate <Antonio Wall MD - Last Filed: 04/12/21 01:50> Rhythm: regular rhythm <Antonio Wall MD - Last Filed: 04/12/21 01:50> Heart sounds: S1 normal heart sound present and S2 normal heart sound present <Antonio Wall MD - Last Filed: 04/12/21 01:50> GI: Inspection: Yes normal to inspection <Antonio Wall MD - Last Filed: 04/12/21 01:50> Palpation (GI): Soft to palpation, nontender and No hepatosplenomegaly present <Antonio Wall MD - Last Filed: 04/12/21 01:50> Auscultation: normal bowel sounds <Antonio Wall MD - Last Filed: 04/12/21 01:50> : General: Yes no CVA tenderness <Antonio Wall MD - Last Filed: 04/12/21 01:50> Back/Spine/Pelvis: Back: no CVA tenderness <Antonio Wall MD - Last Filed: 04/12/21 01:50> Skin: General skin exam: no rashes or lesions noted <Antonio Wall MD - Last Filed: 04/12/21 01:50> Neuro: General: oriented to person and patient oriented x3 <Antonio Wall MD - Last Filed: 04/12/21 01:50> Cranial nerves: Yes CN's II-XII intact bilaterally <Antonio Wall MD - Last Filed: 04/12/21 01:50> Motor exam (neuro): 5/5 motor strength present throughout <Antonio Wall MD - Last Filed: 04/12/21 01:50> Sensory Exam: No Sensory deficit (Neuro) <Antonio Wall MD - Last Filed: 04/12/21 01:50> Extrem: General: Yes normal to inspection <Antonio Wall MD - Last Filed: 04/12/21 01:50> Psych: Appearance: grossly normal <Antonio Wall MD - Last Filed: 04/12/21 01:50> Course Reevaluation(s) Reevaluation #1: patient with increased frequency of headaches. Last major headache was secondary to UTI. Based on the chronicity of her headache I decided to image her brain while waiting for her labs and urine. signed out to Dr. John <Antonio Wall MD - Last Filed: 04/12/21 01:50> Time: 01:50 <Antonio Wall MD - Last Filed: 04/12/21 01:50> MDM - Headache MDM Narrative Medical decision making narrative: Patient feeling better now discharged home diagnosis migraine workup is negative <Federico John MD - Last Filed: 04/12/21 05:19> Lab Data Attestation: I reviewed the patient's lab results. <Federico John MD - Last Filed: 04/12/21 05:19> Result diagrams: : 04/12/21 01:27 04/12/21 01:27 <Antonio Wall MD - Last Filed: 04/12/21 01:50> Labs: Lab Results 04/12/21 04/12/21 Range/Units 01:27 01:27 WBC 14.2 H (4.8-10.8) X10*3/uL RBC 5.11 (4.20-5.50) X10*6/uL Hgb 14.4 (12.0-16.0) g/dl Hct 42.7 (37-47) % MCV 83.6 (80-98) fL MCH 28.2 (27.0-33.0) pg MCHC 33.7 (31.0-35.0) g/dl RDW 12.0 (11.0-16.0) % Plt Count 446 H (160-400) X10*3/uL MPV 9.5 (9.4-12.3) fL Immature Gran % (Auto) 0.4 (0.0-0.4) % Neut % (Auto) 58.9 (45-73) % Lymph % (Auto) 30.2 (20-40) % Childress % (Auto) 7.5 (2-11) % Eos % (Auto) 2.5 (0-4) % Baso % (Auto) 0.5 (0-2) % Lymph # (Auto) 4.3 (1.2-4.9) X10*3/uL Childress # (Auto) 1.1 (0.1-1.2) X10*3/uL Eos # (Auto) 0.4 (0.0-0.4) X10*3/uL Baso # (Auto) 0.1 (0.0-0.2) X10*3/uL Abs Immat Gran (auto) 0.06 H (0.00-0.03) X10*3/uL Absolute Neuts (auto) 8.4 H (2.0-8.3) X10*3/uL Absolute Nucleated RBC 0.000 (0.0-0.012) X10*3/uL Nucleated RBC % (auto) 0.0 (0.0-0.2) /100WBC Smear Tech's Comments VERIFIED Sodium 136 (135-145) mmol/L Potassium 4.5 (3.3-5.1) mmol/L Chloride 98 (96-108) mmol/L Carbon Dioxide 28 (22-29) mmol/L Anion Gap 15 (12-20) BUN 14 (9-16) mg/dL Creatinine 0.77 (0.5-1.4) mg/dL Estim Creat Clear Calc 102.2 Estimated GFR > 60 Random Glucose 328 H (60-115) mg/dL Calcium 10.2 D (8.4-10.2) mg/dL Beta HCG, Quant < 2 mIU/mL <Antonio Wall MD - Last Filed: 04/12/21 01:50> Lab Results 04/12/21 04/12/21 Range/Units 01:27 01:27 WBC 14.2 H (4.8-10.8) X10*3/uL RBC 5.11 (4.20-5.50) X10*6/uL Hgb 14.4 (12.0-16.0) g/dl Hct 42.7 (37-47) % MCV 83.6 (80-98) fL MCH 28.2 (27.0-33.0) pg MCHC 33.7 (31.0-35.0) g/dl RDW 12.0 (11.0-16.0) % Plt Count 446 H (160-400) X10*3/uL MPV 9.5 (9.4-12.3) fL Immature Gran % (Auto) 0.4 (0.0-0.4) % Neut % (Auto) 58.9 (45-73) % Lymph % (Auto) 30.2 (20-40) % Childress % (Auto) 7.5 (2-11) % Eos % (Auto) 2.5 (0-4) % Baso % (Auto) 0.5 (0-2) % Lymph # (Auto) 4.3 (1.2-4.9) X10*3/uL Childress # (Auto) 1.1 (0.1-1.2) X10*3/uL Eos # (Auto) 0.4 (0.0-0.4) X10*3/uL Baso # (Auto) 0.1 (0.0-0.2) X10*3/uL Abs Immat Gran (auto) 0.06 H (0.00-0.03) X10*3/uL Absolute Neuts (auto) 8.4 H (2.0-8.3) X10*3/uL Absolute Nucleated RBC 0.000 (0.0-0.012) X10*3/uL Nucleated RBC % (auto) 0.0 (0.0-0.2) /100WBC Smear Tech's Comments VERIFIED Sodium 136 (135-145) mmol/L Potassium 4.5 (3.3-5.1) mmol/L Chloride 98 (96-108) mmol/L Carbon Dioxide 28 (22-29) mmol/L Anion Gap 15 (12-20) BUN 14 (9-16) mg/dL Creatinine 0.77 (0.5-1.4) mg/dL Estim Creat Clear Calc 102.2 Estimated GFR > 60 Random Glucose 328 H (60-115) mg/dL Calcium 10.2 D (8.4-10.2) mg/dL Beta HCG, Quant < 2 mIU/mL <Federico John MD - Last Filed: 04/12/21 05:19> Discharge Plan Discharge Clinical Impression: Migraine Qualifiers: Migraine type: without aura Status migrainosus presence: without status migrainosus Intractability: not intractable Qualified Code(s): G43.009 - Migraine without aura, not intractable, without status migrainosus <Antonio Wall MD - Last Filed: 04/12/21 01:50> Patient Disposition: Home, Self-Care <Antonio Wall MD - Last Filed: 04/12/21 01:50> Instructions: Migraine Headache (ED) <Antonio Wall MD - Last Filed: 04/12/21 01:50> Additional Instructions: Rest at home take medication for migraine as prescribed follow with PCP <Antonio Wall MD - Last Filed: 04/12/21 01:50> Prescriptions: New nnyukiuuxv-[id number] [Fioricet] 50-300-40 mg capsule 1 cap PO Q6H PRN (Reason: Headache) Qty: 20 RF: 0 No Action cefuroxime axetil 250 mg tablet 250 mg PO BID 7 Days Qty: 14 RF: 0 valacyclovir 1 gram tablet 1,000 mg PO Q12H 7 Days Qty: 14 RF: 0 naproxen 500 mg tablet 500 mg PO BID PRN (Reason: pain) Qty: 20 RF: 0 ibuprofen 800 mg tablet 800 mg PO Q8H PRNRF: 0 Lantus Solostar U-100 Insulin 100 unit/mL (3 mL) insulin pen 10 unit subcut QPM RF: 0 medroxyprogesterone [Depo-Provera] 150 mg/mL suspension 150 mg IM [id number] RF: 0 <Antonio Wall MD - Last Filed: 04/12/21 01:50> Stand Alone Forms: Work/School Release <Antonio Wall MD - Last Filed: 04/12/21 01:50> Interventions: ED Discharge Assessment Last Done: 04/12/21 03:55 <Antonio Wall MD - Last Filed: 04/12/21 01:50> Discharge Date/Time: 04/12/21 03:57 <Antonio Wall MD - Last Filed: 04/12/21 01:50>
[2021-04-12] MEDS: Ketorolac Tromethamine 15 MG/ML VIAL 30 MG IVPUSH (01:30)
[2021-04-12 01:36] LABS: MANUAL DIFF FLAG SCAN; PLT CLUMP 1; SCAN SMEAR FLAG 1
[2021-04-12 01:38] VITALS: BP 146/86; PULSE 93; RESP 16; TEMP 36.7; O2SAT 98
[2021-04-12 01:38] LABS: Basophils Absolute Auto 0.1 X10*3/uL (0.0-0.2); Basophils Percent Auto 0.5 % (0-2); Eosinophils Absolute Auto 0.4 X10*3/uL (0.0-0.4); Eosinophils Percent Auto 2.5 % (0-4); Hematocrit 42.7 % (37-47); Hemoglobin 14.4 g/dl (12.0-16.0); Imm Gran Abs Auto 0.06 X10*3/uL (0.00-0.03); Imm Gran Pct Auto 0.4 % (0.0-0.4); Lymphocytes Absolute Auto 4.3 X10*3/uL (1.2-4.9); Lymphocytes Percent Auto 30.2 % (20-40); Mean Corpuscular HGB Conc 33.7 g/dl (31.0-35.0); Mean Corpuscular Hemoglobin 28.2 pg (27.0-33.0); Mean Corpuscular Volume 83.6 fL (80-98); Mean Platelet Volume 9.5 fL (9.4-12.3); Monocytes Absolute Auto 1.1 X10*3/uL (0.1-1.2); Monocytes Percent Auto 7.5 % (2-11); Neutrophils Absolute Auto 8.4 X10*3/uL (2.0-8.3); Neutrophils Percent Auto 58.9 % (45-73); Platelet Count 446 X10*3/uL (160-400); Red Blood Count 5.11 X10*6/uL (4.20-5.50); White Blood Count 14.2 X10*3/uL (4.8-10.8)
[2021-04-12] MEDS: 0.9 % Sodium Chloride 1,000 ML 999 ML IVCONT ×2 (01:38→02:13)
[2021-04-12 01:45] LABS: Anion Gap 15 (12-20); Blood Urea Nitrogen 14 mg/dL (9-16); Calcium 10.2 mg/dL (8.4-10.2); Carbon Dioxide 28 mmol/L (22-29); Chloride 98 mmol/L (96-108); Creatinine Clr Calc Pharmacy 102.2; Estimated Glomerular Filt Rate > 60; Glucose Random 328 mg/dL (60-115); Potassium 4.5 mmol/L (3.3-5.1); Sodium 136 mmol/L (135-145)
[2021-04-12 01:52] LABS: HCG Quantitative < 2 mIU/mL
[2021-04-12 02:28] LABS: SLIDE REVIEW VERIFIED
[2021-04-12 03:12] VITALS: RESP 16
[2021-04-12 03:50] VITALS: BP 135/63; PULSE 89; RESP 16; O2SAT 98
== END 2021-04-12 03:57 | disposition home or self-care (01) ==
PROVIDERS: Emergency Medicine; Emergency Provider Internal Medicine
DX: G43.009 Migraine without aura, not intractable, without status migrainosus (principal); Z79.899 Other long term (current) drug therapy
CPT/HCPCS: 36415; 70450; 80048; 84702; 85025; 96361; 96374; 96375; 99284; J1885; J2550

== ENCOUNTER 2021-06-28 22:15 | Emergency (ER) | payer MEDICAID, SELFPAY ==
[2021-06-28 22:19] VITALS: BP 136/96; PULSE 91; RESP 18; TEMP 36.6; O2SAT 97; BMI 38.2
[2021-06-28 22:45] LABS: MANUAL DIFF FLAG NO
[2021-06-28 22:46] LABS: Basophils Absolute Auto 0.1 X10*3/uL (0.0-0.2); Basophils Percent Auto 0.4 % (0-2); Eosinophils Absolute Auto 0.3 X10*3/uL (0.0-0.4); Eosinophils Percent Auto 2.2 % (0-4); Hematocrit 41.2 % (37.0-47.0); Hemoglobin 14.2 g/dl (12.0-16.0); Imm Gran Abs Auto 0.03 X10*3/uL (0.00-0.03); Imm Gran Pct Auto 0.2 % (0.0-0.4); Lymphocytes Absolute Auto 4.4 X10*3/uL (1.2-4.9); Lymphocytes Percent Auto 35.1 % (20-40); Mean Corpuscular HGB Conc 34.5 g/dl (31.0-35.0); Mean Corpuscular Hemoglobin 28.9 pg (27.0-33.0); Mean Corpuscular Volume 83.7 fL (80.0-98.0); Monocytes Percent Auto 7.8 % (2-11); Neutrophils Absolute Auto 6.8 x10*3/uL (2.0-8.3); Neutrophils Percent Auto 54.3 % (45-73); Platelet Count 459 X10*3/uL (160-400); Red Blood Count 4.92 X10*6/uL (4.20-5.50); Red Cell Distribution Width 11.9 % (11.0-16.0); White Blood Count 12.5 X10*3/uL (4.8-10.8)
[2021-06-28 23:06] LABS: Alanine Aminotransferase 77 U/L (0-31); Alkaline Phosphatase 82 U/L (39-117); Anion Gap 16 (12-20); Aspartate Amino Transferase 45 U/L (5-31); Bilirubin Total 0.2 mg/dL (0.0-1.0); Blood Urea Nitrogen 13 mg/dL (9-16); Calcium 10.1 mg/dL (8.4-10.2); Carbon Dioxide 28 mmol/L (22-29); Chloride 100 mmol/L (96-108); Creatinine Clr Calc Pharmacy 123.8; Estimated Glomerular Filt Rate > 60; Glucose Random 366 mg/dL (60-115); Potassium 4.6 mmol/L (3.3-5.1); Sodium 139 mmol/L (135-145); Total Protein 7.6 g/dL (6.5-8.0)
== END 2021-06-29 01:59 | disposition left against medical advice (07) ==
LOC: HO.ED 06-29 01:44
PROVIDERS: Emergency Provider Emergency Medicine; PCP Internal Medicine
DX: R10.30 Lower abdominal pain, unspecified (principal)
CPT/HCPCS: 36415; 80053; 85025; 99282; 99283

== ENCOUNTER 2022-07-01 12:06 | Emergency (ER) | payer MEDICAID, SELFPAY ==
--- NOTE | ~2022-07-01 | XR_ITS ---
EXAMINATION: XR KNEE, LEFT CLINICAL INFORMATION: Pain COMPARISON: None TECHNIQUE: 2 views of the left knee. FINDINGS: Bones and soft tissues are normal. No fracture or joint effusion. Alignment is anatomic. Joint spaces are well maintained. No abnormal soft tissue calcification. XR/XR knee LT 2V IMPRESSION: Normal left knee.
[2022-07-01 12:23] VITALS: PULSE 97; RESP 16; TEMP 36.9; O2SAT 99; BMI 36.6
--- NOTE | 2022-07-01 12:31 | ED_ITS ---
HPI - Extremity Problem General Chief complaint: Extremity Problem Stated complaint: pain L knee, no inj Time Seen by Provider: 07/01/22 12:30 Source: patient Mode of arrival: ambulatory Limitations: no limitations History of Present Illness HPI Narrative: 27 yo female presents to the ER for evaluation of nontraumatic left knee pain for the last 2 weeks. 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 He states 2 weeks ago she started noticing pain in her left knee unit progressively started getting worse. States the pain is in entire left knee and radiates up into the distal portion of her left thigh. It is worse with range of motion, palpation and ambulation. She denies any known injury or twisting event. No swelling. She has not taken any medications for the pain. No other complaints today. MD Complaint: joint pain Onset (ago): week(s) (2) Pain Consistency: constant Location: left and knee Severity scale (1-10): 8 Quality: aching and sharp Radiation: proximal Relieving factors: immobilization and rest Exacerbating factors: range of motion, weight bearing, walking and palpation Associated symptoms: denies other symptoms Related Data Home Medications Medication Instructions Recorded Confirmed insulin glargine 100 unit/mL (3 10 unit subcut QPM 05/26/20 07/14/20 mL) subcutaneous pen (Lantus Solostar U-100 Insulin) medroxyprogesterone 150 mg/mL 150 mg IM [id number] 05/26/20 07/14/20 intramuscular suspension (Depo-Provera) ibuprofen 800 mg tablet 800 mg PO Q8H PRN 07/14/20 07/14/20 Previous Rx's Medication Instructions Recorded cefuroxime axetil 250 mg tablet 250 mg PO BID 7 days #14 tabs 01/27/21 naproxen 500 mg tablet 500 mg PO BID PRN pain #20 tabs 02/02/21 valacyclovir 1 gram tablet 1,000 mg PO Q12H 7 days #14 tabs 02/02/21 [id number]-xaselfjtmuxmd-hwtvnwhy 1 cap PO Q6H PRN Headache #20 caps 04/12/21 50 mg-300 mg-40 mg capsule (Fioricet) ibuprofen 600 mg tablet 600 mg PO Q8H PRN pain #20 tabs 07/01/22 Allergies Allergy/AdvReac Type Severity Reaction Status Date / Time No Known Allergies Allergy Verified 02/01/21 22:11 [No Known Allergies*] Review of Systems Review of Systems: Constitutional: No Fever, No Chills Cardiovascular: No Chest Pain, No SOB Gastrointestinal: No Nausea, No Vomiting Musculoskeletal: +joint pain, No Myalgias Skin: No Skin Lesions, No rash Neuro: No Weakness, No Numbness Psych: + Anxiety/Panic, No Depression Heme/Lymph: No Bruising PMFSH Past Medical History Medical History (Updated 07/01/22 @ 13:26 by KAZ Galvan) Amenorrhea Depression Elevated liver enzymes Hirsutism Liver disease Obesity Polycystic disease, ovaries Transaminitis Type 2 diabetes mellitus Vitamin D deficiency Surgical History No pertinent past surgical history Family History Family History Father Diabetes Arthritis Mother Diabetes Alzheimer disease Social History Social History (Updated 07/20/20 @ 09:05 by Jessica Henry PA-C) Household Members: Family Alcohol intake: never Advance Directives: No Advance Directives Information Provided: No Current occupational status: unemployed Physical Exam Vital Signs: Vital Signs: Last Vital Signs Temp 98.5 F 07/01/22 12:23 Pulse 97 07/01/22 12:23 Resp 16 07/01/22 12:23 Pulse Ox 99 07/01/22 12:23 O2 Del Method 07/01/22 12:23 BMI result Body Mass Index 36.6 Appearance: Alert. Oriented X3. No acute distress. HEENT: normal inspection CVS: Normal heart rate and rhythm. Pulses normal. Respiratory: No respiratory distress. Skin: Skin warm and dry. Normal skin color. Normal skin turgor. No rashes. Extremities: Normal inspection of the bilateral knees. There is soft tissue tenderness of the distal thigh anteriorly. She is able to fully extend the left leg and lift the left leg off of the bed. He has tenderness of the patellar tendon and the medial joint line. No palpable effusion. Normal palpation of the patella. Unable to bend past 30 degrees. Unable to assess for joint laxity. Minor pain with varus stress. Neuro: Oriented X 3. No sensory deficit. Ambulates with a limp Course Course Course Narrative: 27-year-old female presents to the ER for evaluation nontraumatic left knee pain. X-ray today is normal. She has pain with range of motion and ambulation. Concern for possible ligamentous injury. Will provide crutches, Henry wrap, and refer to orthopedics for further evaluation. Discharge Plan Discharge Clinical Impression: Acute pain of left knee Patient Disposition: Home, Self-Care Instructions: Knee Pain (ED) Additional Instructions: Your x-ray today was normal. Rest your knee and elevate your leg when possible. Recommend HENRY wrap for support and compression. Use ice several times per day for the next 48 hours. You may bear weight as tolerated. If pain is too severe, use crutches until better. Take Motrin and/or Tylenol as needed for pain. Follow-up with the orthopedics for further evaluation and treatment. Follow up with your doctor as needed. Prescriptions: New ibuprofen 600 mg tablet 600 mg PO Q8H PRN (Reason: pain) Qty: 20 0RF No Action cefuroxime axetil 250 mg tablet 250 mg PO BID 7 Days Qty: 14 0RF valacyclovir 1 gram tablet 1,000 mg PO Q12H 7 Days Qty: 14 0RF naproxen 500 mg tablet 500 mg PO BID PRN (Reason: pain) Qty: 20 0RF hnnoyzgyxg-dteqnqicaqeoe-lqcg [Fioricet] 50-300-40 mg capsule 1 cap PO Q6H PRN (Reason: Headache) Qty: 20 0RF ibuprofen 800 mg tablet 800 mg PO Q8H PRN Lanwilson Hendrixar U-100 Insulin 100 unit/mL (3 mL) insulin pen 10 unit subcut QPM medroxyprogesterone [Depo-Provera] 150 mg/mL suspension 150 mg IM [id number] Referrals: [facility] [place] [facility] [Provider Group] (Acute nontraumatic left knee pain, x- ray negative.) Stand Alone Forms: Work/School Release
== END 2022-07-01 13:51 | disposition home or self-care (01) ==
PROVIDERS: Emergency Provider Emergency Medicine; PCP Internal Medicine
DX: M25.562 Pain in left knee (principal); E11.9 Type 2 diabetes mellitus without complications; Z79.4 Long term (current) use of insulin
CPT/HCPCS: 73560; 99282; 99283

== ENCOUNTER 2022-07-31 16:22 | Outpatient (REF) | payer MEDICAID, SELFPAY ==
--- NOTE | ~2022-07-31 | XR_ITS ---
EXAMINATION: SUNRISE VIEW OF THE LEFT KNEE CLINICAL INFORMATION: 27-year-old female with left knee pain. COMPARISON: X-ray of the left knee on 07/01/2022. Per the series normal). TECHNIQUE: Tangential view of the patellofemoral joint. FINDINGS: There is normal alignment of the patellofemoral joint. A small marginal patellar spur is located medially. The articular margins are well-preserved. XR/XR knee LT 1V IMPRESSION: Small marginal patellar spur.
== END 2022-07-31 16:23 | disposition home or self-care (01) ==
LOC: HO.HOSX 16:22
PROVIDERS: Visit Provider Physician Assistant
DX: M17.12 Unilateral primary osteoarthritis, left knee (principal)
CPT/HCPCS: 73560; 99202

== ENCOUNTER → 2022-08-28 14:37 | Outpatient (BNVA) | payer MEDICAID, SELFPAY | PROVIDERS: PCP Internal Medicine; Visit Provider Physician Assistant | DX: M17.12 Unilateral primary osteoarthritis, left knee (principal) | CPT/HCPCS: 99212 ==

== ENCOUNTER 2022-10-06 15:00 | Outpatient (RCR) | payer MEDICAID, SELFPAY ==
--- NOTE | 2022-08-09 15:57 | MHC.PT.EP ---
[facility] [place] [facility] [place] [facility] [place] [facility] [address] [phone] F: [phone] F: [phone] F: [phone] F: [phone] Physical Therapy Plan of Care Date of Evaluation: Date of Surgery: N/A Diagnosis: unilateral primary osteoarthritis, left knee patellofemoral arthritis of left knee Assessment: Pt is a pleasant 27yo F who presents to PT with L knee pain for ~1 month. She denies any clear TASNEEM, reports pain came on gradually. She presents to PT with current impairments in pain, decreased L knee ROM, decreased strength, soft tissue restrictions, decreased muscle length, decreased balance/proprioception, and impaired gait. She is limited functionally by prolonged standing, walking, bending, and stair navigation. She is an excellent candidate for skilled PT in order to address current impairments to facilitate return to PLOF. She is recommended to be seen 2x/week for 4 weeks and will be reassessed at that time. Frequency and Duration: The patient will be seen 2x/week for 4 weeks Short Term Goals: Pt will be I with HEP to promote self management of symptoms Pt will improve L knee extension by 10 degrees Pt will improve L knee flexion by 10 degrees Retirement Goals: Pt will demonstrate full ROM and strength throughout L knee to assist with standing functional tasks Pt will tolerate standing and walking > 60 min with minimal to no discomfort Pt will demonstrate improvements in function as evidenced by statistically significant improvement in LEFI outcome measure Treatment Plan: Modalities to reduce pain, spasms and effusion. Manual therapy to restore motion and function. Therapeutic exercise to improve strength and flexibility. Neuromuscular re-education for posture and balance. Therapeutic activities to return to functional activities of daily living. Electronically signed by: Kacey Padilla, PT, DPT Please sign and return to therapist. Thank you for your referral.
--- NOTE | 2022-11-13 08:34 | MHC.PT.DC ---
[facility] [place] [facility] [place] [facility] [place] [facility] [address] [phone] F: [phone] F: [phone] F: [phone] F: [phone] Physical Therapy Discharge Report Diagnosis: unilateral primary osteoarthritis, left knee patellofemoral arthritis of left knee Date of Surgery: N/A Date of Evaluation: 08/09/22 Date of Discharge: 11/13/22 Treatments to Date: 11 Cancellations to Date: 2 No Shows to Date: Discharge Status: Discharge Summary: Pt was see for PT from 08/09/22-10/06/22. Her last attended appointment was 10/06/22. She is being D/C from skilled PT as she has not attended or called to schedule in > 30 days. Pt current level of function unknown at this time. Electronically signed by: Kacey Padilla, PT, DPT Please sign and return to therapist. Thank you for your referral.
== END 2022-11-13 08:34 | disposition home or self-care (01) ==
LOC: HO.PT 15:00
PROVIDERS: PCP Internal Medicine; Visit Provider Physician Assistant
DX: M17.12 Unilateral primary osteoarthritis, left knee (principal)
CPT/HCPCS: 97110; 97140; 97161

== ENCOUNTER → 2022-10-09 14:45 | Outpatient (BNVA) | payer MEDICAID, SELFPAY | PROVIDERS: PCP Internal Medicine; Visit Provider Physician Assistant | DX: M17.12 Unilateral primary osteoarthritis, left knee (principal) | CPT/HCPCS: 99212 ==

== ENCOUNTER 2022-11-14 12:39 | Outpatient (REF) | payer OTHER, MEDICAID, SELFPAY ==
--- NOTE | ~2022-11-14 | MR_ITS ---
EXAMINATION: MR KNEE WITHOUT CONTRAST, LEFT CLINICAL INFORMATION: Left knee pain following an injury in June 2022. Osteoarthritis. COMPARISON: Most recent left knee radiographs dated 07/31/2022. TECHNIQUE: MRI of the knee without contrast was performed using routine sequences on a high-field scanner. FINDINGS: MENISCI: Medial Meniscus: Intact. Lateral Meniscus: Intact. LIGAMENTS: Cruciate: Intact. Collateral: Intact. EXTENSOR MECHANISM: Intact quadriceps and patellar tendons. Normal patellofemoral alignment. No patella michael. TT-TG distance within normal limits. Mild edema within the superolateral aspect of Hoffa's fat pad, which can be seen in the setting of patellar tendon lateral femoral condyle friction syndrome. ARTICULAR CARTILAGE/BONE: Patellofemoral Compartment: Medial patellar facet articular cartilage signal heterogeneity. Tiny marginal osteophytes. Medial Compartment: Intact articular cartilage. Lateral Compartment: Intact articular cartilage. JOINT FLUID AND BURSAE: Trace joint effusion. MR/MR knee LT wo con IMPRESSION: 1. No acute meniscal or ligamentous injury. 2. Mild edema within the superolateral aspect of Hoffa's fat pad, which can be seen in the setting of patellar tendon lateral femoral condyle friction syndrome. Normal patellofemoral alignment. 3. Minimal patellofemoral arthrosis. Trace joint effusion.
== END 2022-11-14 12:40 | disposition home or self-care (01) ==
LOC: HO.MRI 12:39
PROVIDERS: PCP Internal Medicine; Visit Provider Physician Assistant
DX: M17.12 Unilateral primary osteoarthritis, left knee (principal)
CPT/HCPCS: 73721

== ENCOUNTER → 2022-11-23 15:19 | Outpatient (BNVA) | payer OTHER, MEDICAID, SELFPAY | PROVIDERS: PCP Internal Medicine; Visit Provider Physician Assistant | DX: M17.12 Unilateral primary osteoarthritis, left knee (principal); M76.52 Patellar tendinitis, left knee | CPT/HCPCS: 99212 ==

== ENCOUNTER 2023-08-31 11:12 | Outpatient (REF) | payer MEDICAID, SELFPAY ==
[2023-08-31 14:00] LABS: Alanine Aminotransferase 79 U/L (0-31); Albumin Level 4.3 g/dL (3.5-5.0); Alkaline Phosphatase 87 U/L (39-117); Anion Gap 15 (12-20); Aspartate Amino Transferase 45 U/L (5-31); Bilirubin Total 0.4 mg/dL (0.0-1.0); Blood Urea Nitrogen 11 mg/dL (9-16); Calcium 10.3 mg/dL (8.4-10.2); Carbon Dioxide 25 mmol/L (22-29); Chloride 99 mmol/L (96-108); Cholesterol 275 mg/dL (<200); Estimated Glomerular Filt Rate > 60; Glucose Random 314 mg/dL (60-115); HDL Cholesterol 47 mg/dL (>40); LDL Cholesterol Calculated 175 mg/dL (<100); Potassium 4.2 mmol/L (3.3-5.1); Sodium 135 mmol/L (135-145); Total Protein 8.7 g/dL (6.5-8.0); Triglycerides 269 mg/dL (<150)
[2023-08-31 14:38] LABS: Creatinine Urine 98.22 mg/dL; Microalbum/Creatinine Ratio Ur 52.9 ug/mg cr (<30)
== END 2023-08-31 11:13 | disposition home or self-care (01) ==
LOC: HO.HHCL 11:12
PROVIDERS: Visit Provider Registered Nurse
DX: E11.65 Type 2 diabetes mellitus with hyperglycemia (principal); R30.0 Dysuria
CPT/HCPCS: 36415; 80053; 80061; 82043; 82570; 87086; 87088; 87186

== ENCOUNTER 2023-12-31 18:02 | Outpatient (REF) | payer MEDICAID, SELFPAY ==
[2024-01-01 08:47] LABS: Bacterial Vaginosis PCR NEGATIVE (Negative); Candida Group PCR DETECTED (Not Detect); Candida glab krusei PCR NOT DETECTED (Not Detect); Trichomonas vaginalis PCR NOT DETECTED (Not Detect)
== END 2023-12-31 18:03 | disposition home or self-care (01) ==
LOC: HO.HHCLNP 18:02
PROVIDERS: Visit Provider Advanced Practice Midwife
DX: R30.0 Dysuria (principal); N89.8 Other specified noninflammatory disorders of vagina; B95.1 Streptococcus, group B, as the cause of diseases classified elsewhere
CPT/HCPCS: 0352U; 87086; 87147

== ENCOUNTER 2024-01-04 13:17 | Outpatient (REF) | payer MEDICAID, SELFPAY | END 2024-01-04 13:18 | disposition home or self-care (01) | LOC: HO.HHCL 13:17 | PROVIDERS: Visit Provider Advanced Practice Midwife | DX: R30.0 Dysuria (principal) | CPT/HCPCS: 87086 ==

== ENCOUNTER 2024-01-17 | Outpatient (REF) | payer MEDICAID, SELFPAY | END 2024-01-17 00:01 | disposition home or self-care (01) | LOC: HO.LNP | PROVIDERS: Visit Provider Advanced Practice Midwife | DX: Z12.4 Encounter for screening for malignant neoplasm of cervix (principal) | CPT/HCPCS: 87625; 88175 ==

== ENCOUNTER → 2024-03-19 13:56 | Outpatient (RCR) | payer MEDICAID, SELFPAY ==
[2020-07-13 13:31] VITALS: BP 157/93; PULSE 91; RESP 18; TEMP 36.2; O2SAT 99; BMI 36.8
[2020-07-13 13:39] VITALS: BP 138/62
[2020-07-13 14:23] LABS: MANUAL DIFF FLAG NO
[2020-07-13 14:32] LABS: Basophils Absolute Auto 0.1 X10*3/uL (0.0-0.2); Basophils Percent Auto 0.6 % (0-2); Eosinophils Absolute Auto 0.3 X10*3/uL (0.0-0.4); Eosinophils Percent Auto 2.4 % (0-4); Hematocrit 42.1 % (37-47); Hemoglobin 14.3 g/dl (12.0-16.0); Imm Gran Abs Auto 0.02 X10*3/uL (0.00-0.03); Imm Gran Pct Auto 0.2 % (0.0-0.4); Lymphocytes Absolute Auto 4.1 X10*3/uL (1.2-4.9); Lymphocytes Percent Auto 38.4 % (20-40); Mean Corpuscular Hemoglobin 28.2 pg (27.0-33.0); Mean Platelet Volume 8.6 fL (9.4-12.3); Monocytes Absolute Auto 0.8 X10*3/uL (0.1-1.2); Monocytes Percent Auto 7.2 % (2-11); Neutrophils Absolute Auto 5.5 X10*3/uL (2.0-8.3); Neutrophils Percent Auto 51.2 % (45-73); Platelet Count 509 X10*3/uL (160-400); Red Blood Count 5.07 X10*6/uL (4.20-5.50); Red Cell Distribution Width 11.6 % (11.0-16.0); White Blood Count 10.8 X10*3/uL (4.8-10.8)
--- NOTE | 2020-07-13 14:34 | MHC.HEMONC ---
Patient here for consult. Labs drawn. Clinical summary updated with nurse. Provider seen patient. Follow-up booked.
[2020-07-13 14:53] LABS: Iron 81 mcg/dL (30-160); Percent Iron Saturation 30 % (15-50); Total Iron Binding Capacity 271 mcg/dL (228-428); Unsaturated Iron Binding 190 ug/dL
--- NOTE | 2020-07-13 15:02 | P.CNHO_ITS ---
Subjective - Subjective Chief complaint: Follow-up Consult date: 07/13/20 Primary Care Provider: Debby Parsons MD HPI - Consult Narrative Reason for consult: Elevated platelet count Narrative: Mary Beth Tripp is a 25 year old female referred for evaluation of t hrombocytosis. She has had chronic elevation but was just made aware recently. She reports no symptoms such as fatigue, night sweats, fever or chills. She has never had a blood clot. She denies any headache or dizziness. No arm pain or swelling. She has a diagnosis of PCOS and has menstrual irregularities. She was diagnosed with diabetes mellitus 2 years ago. She does not recall any blood disorders in her family. She denies any cancer history. Both her parents are alive and well. There is a lot of diabetes in her family. She has never been told of iron deficiency anemia. Review of Systems - Eyes Reports no additional eye complaints, Denies blurry vision, Denies change in vision - Cardiovascular Denies no additional cardiovascular complaints, Denies chest pain, Denies chest pain with activity - Respiratory Denies no additional respiratory complaints, Denies cough, Denies hemoptysis - Gastrointestinal Denies no additional gastrointestinal complaints - Integumentary/Breasts Skin/Breast: Reports change in hair, Reports change in skin color Oncology Screenings - ECOG Performance Status ECOG Performance Status: 0 [facility] Medical History: Medical History (Last Updated 07/13/20 @ 13:41 by Kusum Clarke RN) Depression Liver disease Obesity Polycystic disease, ovaries Type 2 diabetes mellitus Family History: Family History (Last Updated 07/13/20 @ 13:40 by Kusum Clarke RN) Father Diabetes Arthritis Mother Diabetes Alzheimer disease Surgical History: Surgical History (Last Reviewed 06/29/20 @ 11:27 by Charlette Bethea CMA) No pertinent past surgical history Smoking status: Never smoker Home Medications and Allergies Home Medications Medication Instructions Recorded Confirmed Type insulin glargine 100 unit/mL (3 10 unit SUBCUT QPM 05/26/20 07/13/20 History mL) subcutaneous pen medroxyprogesterone 150 mg/mL 150 mg IM [id number] 05/26/20 07/13/20 History intramuscular suspension Allergies Allergy/AdvReac Type Severity Reaction Status Date / Time No Known Allergies Allergy Verified 07/13/20 13:41 [No Known Allergies*] Physical Exam Vital signs: Vital Signs Temp 97.2 F 07/13/20 13:31 Pulse 91 07/13/20 13:31 Resp 18 07/13/20 13:31 BP 138/62 07/13/20 13:39 Pulse Ox 99 07/13/20 13:31 Intake & Output 07/12/20 07/13/20 07/13/20 18:59 06:59 18:59 Other: Weight 100.4 kg Weight 100.4 kg - Constitutional Present: no acute distress, obese - Routine HEENT Exam Head: Present: normal inspection Eye: Present: EOMI - Routine Neck Exam Present: supple. Absent: lymphadenopathy - Routine Respiratory Exam Present: CTAB - Routine Cardiovascular Exam Cardiovascular: Present: S1, S2 - Routine Extremities Exam Present: normal inspection - Routine Skin Exam Present: intact Hem/Onc Consult Result - Labs CBC & Chem 7: 07/13/20 14:22 Labs: Short CBC 07/13/20 Range/Units 14:22 WBC 10.8 (4.8-10.8) X10*3/uL Hgb 14.3 (12.0-16.0) g/dl Hct 42.1 (37-47) % Plt Count 509 H (160-400) X10*3/uL Assessment and Plan (1) Thrombocytosis Status: Chronic This is a pleasant 25-year-old woman with chronic thrombocytosis dating back to at least 2008. She does not have anemia but elevated markers of inflammation. Slightly elevated ESR, C-reactive protein and ferritin levels. She does not have iron deficiency. She most likely has reactive thrombocytosis, underlying PCOS could be a reason. JAK2 mutation has been submitted to rule out essential thrombocytosis. She does not have leukocytosis. No constitutional symptoms. Above diagnosis was explained to patient. She agrees to proceed with testing as recommended. I thank you for this referral.
[2020-07-13 15:13] LABS: Ferritin 343 ng/mL (10-122)
[2020-07-13 16:19] LABS: Erythrocyte Sedimentation Rate 34 MM/HR (0-20)
[2020-07-20 11:53] LABS: JAK2 CALR Exon 9 Mutation Not Detected (Not Detected); JAK2 CSF3R Exon 14/17 Mutation Not Detected (Not Detected); JAK2 MPL Exon 10 Mutation Not Detected (Not Detected); JAK2 Specimen Source Blood; JAK2 V617F Mutation Not Detected (Not Detected)
--- NOTE | 2020-07-21 12:53 | MHC.HEMONCSW ---
CROW 2 # [id number]. INFORMED TRIAGE NURSE.
--- NOTE | 2020-07-21 13:08 | MHC.HEMONCMA ---
Patient's authorization came back for JAK2 mutation. I called and spoke with the patient and scheduled her for 07/26/2020 at 8:45am. She knows to come to our office for this blood draw.
== END | disposition home or self-care (01) ==
LOC: HO.ONC 07-13 13:22
PROVIDERS: PCP Internal Medicine; Visit Provider Internal Medicine
DX: D47.3 Essential (hemorrhagic) thrombocythemia (principal); E28.2 Polycystic ovarian syndrome
CPT/HCPCS: 36415; 81403; 82728; 83540; 85025; 85652; 99202

== ENCOUNTER 2024-03-19 16:20 | Outpatient (REF) | payer MEDICAID, SELFPAY ==
[2024-03-19 18:31] LABS: Cholesterol 328 mg/dL (<200); HCG Quantitative < 2 mIU/mL; HDL Cholesterol 38 mg/dL (>40)
[2024-03-19 18:35] LABS: Triglycerides 1769 mg/dL (<150)
== END 2024-03-19 16:21 | disposition home or self-care (01) ==
LOC: HO.HHCL 16:20
PROVIDERS: Visit Provider Registered Nurse
DX: E11.65 Type 2 diabetes mellitus with hyperglycemia (principal); N92.6 Irregular menstruation, unspecified
CPT/HCPCS: 36415; 80061; 84702

== ENCOUNTER 2024-05-23 15:39 | Outpatient (REF) | payer MEDICAID, SELFPAY | END 2024-05-23 15:40 | disposition home or self-care (01) | LOC: HO.US 15:39 | PROVIDERS: PCP Registered Nurse; Visit Provider Registered Nurse | DX: N93.9 Abnormal uterine and vaginal bleeding, unspecified (principal) | CPT/HCPCS: 76830; 76856 ==

== ENCOUNTER 2025-06-26 09:31 | Outpatient (REF) | payer MEDICAID, SELFPAY ==
[2025-06-26 11:27] LABS: MANUAL DIFF FLAG NO
[2025-06-26 11:39] LABS: Appearance Urine Turbid; Glucose Urine UA 250 mg/dL (Negative); PH 5.5 (5.0-9.0); Specific Gravity - Urine 1.020 (1.005-1.025); UMIC TRIGGER UA YES
[2025-06-26 11:41] LABS: Hematocrit 42.9 % (37.0-47.0); Hemoglobin 14.3 g/dl (12.0-16.0); Imm Gran Abs Auto 0.05 X10*3/uL (0.00-0.03); Imm Gran Pct Auto 0.4 % (0.0-0.4); Lymphocytes Absolute Auto 3.5 X10*3/uL (1.2-4.9); Mean Corpuscular HGB Conc 33.3 g/dl (31.0-35.0); Mean Corpuscular Hemoglobin 28.4 pg (27.0-33.0); Mean Corpuscular Volume 85.1 fL (80.0-98.0); NRBC Abs Auto 0.000 X10*3/uL (0.0-0.012); NRBC Pct Auto 0.0 /100WBC (0.0-0.2); Platelet Count 535 X10*3/uL (160-400); Red Blood Count 5.04 X10*6/uL (4.20-5.50); White Blood Count 14.0 X10*3/uL (4.8-10.8)
[2025-06-26 12:20] LABS: Anion Gap 14 (12-20); Blood Urea Nitrogen 11 mg/dL (9-16); Calcium 9.2 mg/dL (8.4-10.2); Carbon Dioxide 27 mmol/L (22-29); Chloride 102 mmol/L (96-108); Estimated Glomerular Filt Rate > 60; Potassium 3.6 mmol/L (3.3-5.1); Sodium 139 mmol/L (135-145)
== END 2025-06-26 09:32 | disposition home or self-care (01) ==
LOC: HO.HHCL 09:31
PROVIDERS: Visit Provider Nurse Practitioner
DX: R53.1 Weakness (principal); R11.0 Nausea
CPT/HCPCS: 36415; 80048; 81001; 83036; 84443; 84702; 85025